=== PATIENT | male | born 1950 | race Caucasian/White ===

== ENCOUNTER 2021-09-10 08:12 | Outpatient (CLI) | payer MEDICARE ==
[2021-09-10 08:56] LABS: Estimated GFR-MDRD - POC Greater than 90
== END 2021-09-10 08:13 | disposition home or self-care (01) ==
LOC: CSHCT 08:12
PROVIDERS: ATTEND Family Medicine
DX: R74.8 Abnormal levels of other serum enzymes (principal); K86.9 Disease of pancreas, unspecified; C78.7 Secondary malignant neoplasm of liver and intrahepatic bile duct; D49.0 Neoplasm of unspecified behavior of digestive system; D49.7 Neoplasm of unspecified behavior of endocrine glands and other parts of nervous system; C78.6 Secondary malignant neoplasm of retroperitoneum and peritoneum
CPT/HCPCS: 74177; 82565